=== PATIENT | female | born 1995 | race Caucasian/White ===

== ENCOUNTER 2016-04-21 05:15 | Outpatient (CLI) | payer BC ==
[~2016-04-21] VITALS: Ht 152.4 cm; Wt 77.3 kg
[~2016-04-21 05:15] MED LIST: CITRACAL PO; FOLI0.4T2 PO; PRENAT PO
[2016-04-21 05:23] VITALS: BP 132/69; PULSE 96; RESP 20
[2016-04-21 06:49] LABS: ADD UMIC YES; URINE BILIRUBIN (Dip) NEGATIVE (NEGATIVE); URINE BLOOD (Dip) NEGATIVE (NEGATIVE); URINE COLOR YELLOW (YELLOW); URINE GLUCOSE (Dip) NEGATIVE (NEGATIVE); URINE KETONES (Dip) 15 (NEGATIVE); URINE LEUKOCYTE ESTERASE (Dip) NEGATIVE (NEGATIVE); URINE NITRITE (Dip) NEGATIVE (NEGATIVE); URINE UROBILINOGEN (Dip) 1.0 E.U./dL (0.1-1.0)
[2016-04-21 07:05] LABS: URINE TOTAL PROTEIN (Dip) 1+ (NEGATIVE)
[2016-04-21 07:06] LABS: SQUAMOUS EPITHELIAL CELL,UR FEW; URINE RBCS NONE SEEN /HPF (0)
--- NOTE | 2016-04-21 07:06 | RADRPT ---
PROCEDURE: US OB limited CLINICAL INDICATION: Premature rupture of membranes TECHNIQUE: Multiple sonographic images of the pelvis were obtained. The images were reviewed on a PACS workstation. COMPARISON: 01/06/2016 FINDINGS: There is a single live intrauterine gestation. There is a slightly increased amount of amniotic fluid with an [place] = 24.08 cm cm. Cardiac activity is present with 114 beats per minute. There is a vertex presentation. The placenta is anterior and grade 2. no evidence for abruption or previa. The cervix is not seen. MVP = 8.8 cm IMPRESSION: Slightly increased amniotic fluid index. Otherwise unremarkable study. Single live intrauterine ge station with vertex presentation. . RPTAT: [facility] Physician Ayush Date Time Electronically viewed and signed by Maddie Thompson Physician on 04/21/2016 07:05 [email or web address]/
[2016-04-21] MEDS ORDERED: LACTATED RINGER'S 1,000 ML IV SCH (08:30)
== END 2016-04-21 10:12 | disposition home or self-care (01) ==
LOC: OBT 05:15 → L-D 05:16 → OBT 10:12
PROVIDERS: ATTEND Obstetrics & Gynecology
DX: O26.893 Other specified pregnancy related conditions, third trimester (principal); Z3A.00 Weeks of gestation of pregnancy not specified
CPT/HCPCS: 76815; 81001; 84112; 96360; J7120; Z7500; 81003; G0463